=== PATIENT | female | born 1975 | race African-American/Black ===

== ENCOUNTER 2017-06-13 19:58 | Emergency (ER) | payer BC ==
[~2017-06-13] VITALS: Ht 157.5 cm; Wt 82.7 kg
[2017-06-13] MEDS ORDERED: PERCOCET 5/31 TABLET PO (21:32)
[2017-06-13] MEDS ORDERED: MEDROL DOSEPAK4 MG PO (21:32)
[2017-06-13] MEDS ORDERED: ROBAXIN750 MG PO (21:32)
[2017-06-13 21:53] VITALS: BP 164/109
== END 2017-06-13 21:54 | disposition home or self-care (01) ==
LOC: EME 19:58
DX: M54.5 Low back pain (principal); Z91.81 History of falling; F17.200 Nicotine dependence, unspecified, uncomplicated; Z88.5 Allergy status to narcotic agent
CPT/HCPCS: 72100; 72220; 99281; 99284; J7512

== ENCOUNTER 2017-08-06 03:22 | Emergency (ER) | payer BC ==
[~2017-08-06] VITALS: Ht 154.9 cm; Wt 81.7 kg
[~2017-08-06 03:22] MED LIST: MEDROL DOSEPAK4 MG PO; PERCOCET 5/31 TABLET PO; ROBAXIN750 MG PO
[2017-08-06] MEDS ORDERED: NAPROXEN500 MG PO (04:16)
[2017-08-06 04:34] VITALS: BP 138/88
== END 2017-08-06 04:35 | disposition home or self-care (01) ==
LOC: EME 03:22
DX: M65.841 Other synovitis and tenosynovitis, right hand (principal); Z88.5 Allergy status to narcotic agent
CPT/HCPCS: 73110; 99281; 99284